=== PATIENT | male | born 1980 | race African-American/Black ===

== ENCOUNTER 2024-01-01 22:01 | Emergency (ER) | payer MEDICAID, OTHER ==
[~2024-01-01] VITALS: Ht 182.9 cm; Wt 77.1 kg
[~2024-01-01 22:01] MED LIST: ASCO500T95 PO; LID5T TP; NAPR-1704 PO
[2024-01-01 23:15] VITALS: BP 129/79; PULSE 94; RESP 17; TEMP 98; O2SAT 100
[2024-01-02 00:49] VITALS: BP 129/79; PULSE 94; RESP 17; TEMP 98; O2SAT 100
== END 2024-01-02 01:35 | disposition home or self-care (01) ==
LOC: MED 22:01
DX: J39.2 Other diseases of pharynx (principal); Z79.899 Other long term (current) drug therapy
CPT/HCPCS: 99281